=== PATIENT | female | born 1955 ===

== ENCOUNTER 2020-03-03 07:41 | Outpatient (CLI) | payer OTHER, SELFPAY ==
[2020-03-05 20:01] LABS: SARS-CoV-2 RNA Undetected (Undetected); SARS-CoV-2 Specimen Source Nasopharynx
== END 2020-03-03 08:01 ==
PROVIDERS: Visit Provider Family Medicine
DX: Z11.59 Encounter for screening for other viral diseases (principal)
CPT/HCPCS: U0003